=== PATIENT | female | born 1975 | race Caucasian/White ===

== ENCOUNTER 2017-11-06 14:21 | Emergency (ER) | payer OTHER ==
[~2017-11-06] VITALS: Ht 175.3 cm; Wt 99.8 kg
[2017-11-06] MEDS ORDERED: LOPID600 MG PO (14:34)
[2017-11-06] MEDS ORDERED: PREMARIN0.3 MG PO (14:34)
[2017-11-06] MEDS ORDERED: DIVIGEL1 EAC1 TOP (14:34)
[2017-11-06] MEDS ORDERED: ZETIA10 MG PO (14:34)
[2017-11-06 15:35] LABS: ABSOLUTE EOSINOPHILS 0.1 thou/uL (0.0-0.7); ABSOLUTE LYMPHOCYTES 1.9 thou/uL (0.8-5.3); ABSOLUTE MONOCYTES 0.7 thou/uL (0.0-1.2); ABSOLUTE NEUTROPHILS 1.7 thou/uL (1.6-8.1); BASOPHILS 0.3 %; EOSINOPHILS 2.6 %; HEMATOCRIT 44.8 % (37.0-47.0); HEMOGLOBIN 15.1 gm/dL (12.0-15.0); LYMPHOCYTES 42.8 %; MCH 30.9 pg (26.0-34.0); MCHC 33.8 g/dL (28.0-37.0); MCV 91.3 fL (80.0-100.0); MPV 8.9 fl. (7.2-11.1); NUCLEATED RBCS 0 /100WBC; PLATELET COUNT* 266 thou/uL (150-400); POLYS 39.3 %; RDW-CV 14.1 % (10.5-14.5); WBC 4.4 thou/uL (4.0-11.0)
[2017-11-06 15:40] LABS: ANION GAP 9 mmol/L (7-16); BUN 14 mg/dL (7-18); CALCIUM 9.5 mg/dL (8.5-10.1); CHLORIDE 103 mmol/L (98-107); CO2 28 mmol/L (21-32); CREATININE 0.7 mg/dL (0.6-1.3); GLUCOSE 93 mg/dL (70-99); SODIUM 140 mmol/L (136-145)
[2017-11-06 15:48] LABS: ALBUMIN 4.7 g/dL (3.4-5.0); ALKALINE PHOSPHATASE 69 U/L (46-116); SGOT 75 U/L (15-37); SGPT 181 U/L (30-65); TOTAL BILIRUBIN 0.4 mg/dL (<0.1-1.0); TOTAL PROTEIN 8.4 g/dL (6.4-8.2); TROPONIN-I LEVEL <0.06 ng/mL (<0.06)
[2017-11-06] MEDS ORDERED: ASPIRIN325 PO (16:25)
[2017-11-06 17:22] LABS: URINE BILIRUBIN NEGATIVE (Negative); URINE BLOOD NEGATIVE (Negative); URINE CLARITY CLEAR; URINE COLOR YELLOW; URINE GLUCOSE-RANDOM NEGATIVE (Negative); URINE KETONES NEGATIVE (Negative); URINE LEUKOCYTES-REFLEX NEGATIVE (Negative); URINE NITRITE-REFLEX NEGATIVE (Negative); URINE PROTEIN NEGATIVE (Negative); URINE SPECIFIC GRAVITY <= 1.005 (1.005-1.030); URINE UROBILINOGEN 0.2 E.U./dl (0.2-1.0)
[2017-11-06] MEDS ORDERED: ZPAK PO (18:47)
[2017-11-06 19:00] LABS: AMP/METHAMP Negative (Negative); BARBITURATES Negative (Negative); BENZODIAZEPINES Negative (Negative); COCAINE Negative (Negative); METHADONE Negative (Negative); OPIATES Negative (Negative); PCP Negative (Negative); THC Negative (Negative)
[2017-11-06] MEDS ORDERED: ONDANSETRON HCL4 M2 PO (19:39)
[2017-11-06 19:50] VITALS: BP 140/80
--- NOTE | 2017-11-08 12:34 | EKG ---
[place] [address] ELECTROCARDIOGRAM REPORT Name: NYLA PAINTING Room: [facility]#: [id number] Admission: 11/06/17 Attend Phys: Discharge: 11/06/17 Date of : 73 Report #: [id number] THIS REPORT FOR: //name// [facility] ED Test Date: 2017-11-06 Test Time: 15:10:07 Pat Name: NYLA PAINTING Department: Room: Gender: F [employer]il [employer] Professor: Flory BROWNING : 1975 Requested By: Daily Deluna Order Number: [id number] Julienne MD: Felix Marina Measurements Intervals [place] Rate: 72 P: 27 DC: 155 QRS: 5 QRSD: 98 T: 14 QT: 425 QTc: 466 Interpretive Statements Sinus rhythm Compared to ECG 12/18/2005 09:01:06 No significant changes Electronically Signed On 11-08-2017 12:34:07 ELECTRICAL PROSPECTING OPERATOR by Felix Marina [email or web address] <ELECTRONICALLY SIGNED> By: Felix Marina MD, [facility] 11/08/17 1234 1510 1510 Felix Marina MD, FACC /EPI
--- NOTE | 2017-11-08 12:36 | EKG ---
[place] [address] ELECTROCARDIOGRAM REPORT Name: NYLA PAINTING Room: [facility]#: [id number] Admission: 11/06/17 Attend Phys: Discharge: 11/06/17 Date of : 73 Report #: [id number] THIS REPORT FOR: //name// [facility] ED Test Date: 2017-11-06 Test Time: 18:47:06 Pat Name: NYLA PAINTING Department: Room: Gender: F Shirt Closer: NICKY : 1975 Requested By: Daily Deluna Order Number: [id number] MD: Felix Marina Measurements Intervals [place] Rate: 64 P: 39 NM: 157 QRS: 17 QRSD: 100 T: 15 QT: 436 QTc: 450 Interpretive Statements Sinus rhythm Compared to ECG 12/18/2005 09:01:06 No significant changes Electronically Signed On 11-08-2017 12:36:29 [employer]ASS PLANT MANAGER by Felix Marina [email or web address] <ELECTRONICALLY SIGNED> By: Felix Marina MD, [facility] 11/08/17 1236 1847 1847 Felix Marina MD, FACC /EPI
== END 2017-11-06 19:50 | disposition home or self-care (01) ==
LOC: M.ERS 14:21
PROVIDERS: Physician Assistant
DX: H92.01 Otalgia, right ear (principal); R20.2 Paresthesia of skin; E78.00 Pure hypercholesterolemia, unspecified; Z90.710 Acquired absence of both cervix and uterus